=== PATIENT | male | born 1955 | race Caucasian/White ===

== ENCOUNTER → 2016-07-04 | Outpatient (CLI) | payer OTHER ==
[~2016-07-04] MED LIST: ASPI81 PO; ASPI81TA81 PO; FENO145T2 PO; FENO50TA PO; HYDR-3535 PO; LORA-475 PO; LORA1TAB12 PO; MECL-62 PO; MULT-135 PO; NIFE20 PO; NIFE60TA58 PO; PRED20 PO; PREV30CA11 PO; PREV30CA36 PO; SIMV5TAB32 PO; TOPR50TA PO; ZOCO10TA PO; ZOFR4TAB3 SL
[2016-07-04 10:03] LABS: ALKALINE PHOSPHATASE 76 U/L (45-117); ALT (GPT) 19 U/L (12-78); ANION GAP 7 MEQ/L (5-15); AST (GOT) 16 U/L (15-37); BICARBONATE 29.4 MEQ/L (21.0-32.0); BLOOD UREA NITROGEN 26 MG/DL (7-18); CHLORIDE 105 MEQ/L (98-107); GLOMERULAR FILTRATION RATE 80 ML/MIN (>89); GLUCOSE,FASTING 88 MG/DL (74-99); HDL CHOLESTEROL 52.8 MG/DL (40.0-60.0); LDL CHOLESTEROL 71 MG/DL (0-99); POTASSIUM 4.4 MEQ/L (3.5-5.1); SODIUM (NA) 141 MEQ/L (136-145); TOTAL BILIRUBIN ADULT 0.3 MG/DL (0.2-1.0)
== END ==
LOC: PLAB 06:42
PROVIDERS: ATTEND Family Medicine
DX: E78.2 Mixed hyperlipidemia (principal)
CPT/HCPCS: 80053; 80061

== ENCOUNTER 2016-09-30 13:31 | Emergency (ER) | payer OTHER ==
[~2016-09-30] VITALS: Ht 167.6 cm; Wt 68.0 kg
[~2016-09-30 13:31] MED LIST changes: -ASPI81TA81 PO; -FENO145T2 PO; -LORA1TAB12 PO; -MECL-62 PO; -MULT-135 PO; -NIFE60TA58 PO; -PREV30CA11 PO; -ZOCO10TA PO; -ZOFR4TAB3 SL
[2016-09-30 13:33] VITALS: BP 148/90; PULSE 58; RESP 20; TEMP 97.8; O2SAT 97
[2016-09-30] MEDS ORDERED: SODIUM CHLOR 0.9% 1000 ML INJ 1,000 ML IV ONE (14:08)
--- NOTE | 2016-09-30 14:13 | PD ---
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 He reports that for the past week he has been having episodic episodes in which he has a "room spinning" sensation. Symptoms tend to last approximately 20 minutes at a time and he seemed to be primarily reproduced with movement, especially when he is going from sitting to lying down although sometimes the symptoms are not reproduced by movement. He endorses some nausea associated as well as some blurred vision. Currently he is not expressing any symptoms however earlier today he had a particularly bad out of the symptoms which prompted evaluation. 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 He also endorses cold symptoms 3 weeks ago. Denies any fevers, chills, chest pain or shortness of breath, palpitations, vomiting, slurred speech, focal weakness. PFSH Past Medical History Hx Anticoagulant Therapy: No Asthma: No Autoimmune Disease: No Blood Disorders: No Anxiety: Yes Heart Rhythm Problems: No Cancer: No Cardiac Catheterization: Yes Cardiovascular Problems: Yes ([place] 10 years ago) High Cholesterol: Yes Chemotherapy: No Chest Pain: Yes Congestive Heart Failure: No COPD: No Cerebrovascular Accident: No Diabetes: No Diminished Hearing: No Endocrine: No GERD: Yes Genitourinary: No Headaches: No Hepatitis: Yes Hiatal Hernia: Yes Hypertension: Yes Immune Disorder: No Kidney Stones: No Musculoskeletal: No Neurologic: Yes (BELLS PALSY) Psychiatric: No Reproductive: No Respiratory: No Migraines: No Myocardial Infarction: Yes (2003) Radiation Therapy: No Renal Failure: No Seizures: No Sleep Apnea: No Ulcer: No Past Surgical History Abdominal Surgery: No AICD: No Appendectomy: No Arteriovenous Shunt: No Cardiac Surgery: Yes (stents) Cholecystectomy: No Coronary Stent: Yes (X2) Ear Surgery: No Endocrine Surgery: No Eye Surgery: No Genitourinary Surgery: No Gynecologic Surgery: No Insulin Pump: No Joint Replacement: No Oral Surgery: No Pacemaker: No Thoracic Surgery: No Other Surgery: Yes (right shoulder) Social History Alcohol Use: Yes (WINE OCCASIONALLY) Tobacco Use: No Substance Use: Yes ([employer]) Allergies-Medications (Allergen,Severity, Reaction): Coded Allergies: Codeine (Verified Allergy, Severe, Nausea/Vomiting, 09/30/16) Oxycodone (Verified Allergy, Severe, Rash, 09/30/16) Morphine (Verified Adverse Reaction, Mild, LOCALIZED REDDENED AREA, ) Reported Meds & Prescriptions Reported Meds & Active Scripts Active Meclizine (Meclizine HCl) 25 Mg Tab 25 Mg PO TID PRN Reported Aspir-81 (Aspirin) 81 Mg Tabdr 81 Mg PO DAILY Fenofibrate 145 Mg Tab 145 Mg PO DAILY Lortab (Hydrocodone-Acetaminophen) 10-325 Mg Tab 1 Tab PO Q4H PRN Prevacid (Lansoprazole) 30 Mg Capdr 30 Mg PO DAILY Lorazepam 1 Mg Tab 1 Mg PO BID PRN Toprol XL (Metoprolol Succinate) 50 Mg Tab 50 Mg PO DAILY Nifedipine ER 24 HR (Nifedipine) 60 Mg Tab 60 Mg PO DAILY Zocor (Simvastatin) 10 Mg Tab 10 Mg PO DAILY Multi Vitamin (Multiple Vitamin) 1 Tab Tab 1 Tab PO DAILY Review of Systems Except as stated in HPI: all other systems reviewed are Neg Physical Exam Narrative GENERAL: Well-developed well-nourished male in no acute distress sitting upright on hospital bed SKIN: Warm and dry. HEAD: Atraumatic. Normocephalic. EYES: Pupils equal and round reactive to light extraocular muscles are intact. ENT: No nasal bleeding or discharge. Mucous membranes pink and moist. NECK: Trachea midline. No JVD. CARDIOVASCULAR: Regular rate and rhythm. No murmur appreciated. RESPIRATORY: No accessory muscle use. Clear to auscultation. Breath sounds equal bilaterally. GASTROINTESTINAL: Abdomen soft, non-tender, nondistended. Hepatic and splenic margins not palpable. MUSCULOSKELETAL: No obvious deformities. No clubbing. No cyanosis. No edema. NEUROLOGICAL: Awake and alert. No obvious cranial nerve deficits. Motor grossly within normal limits. Normal speech. Normal [id number], heel-to- metcalf, rapid alternating movements. Some ataxia when walking heel to toe. Positive Freeport-Hallpike maneuver. No nystagmus but reproduces symptoms. PSYCHIATRIC: Appropriate mood and affect; insight and judgment normal. Data Data Last Documented VS Vital Signs Date Time Temp Pulse Resp B/P Pulse Ox O2 Delivery O2 Flow Rate FiO2 09/30/16 14:35 18 99 Room Air 09/30/16 13:33 97.8 58 148/90 Orders Electrocardiogram (09/30/16 ) Basic Metabolic Panel (Bmp) (09/30/16 14:08) Complete Blood Count With Diff (09/30/16 14:08) Magnesium (Mg) (09/30/16 14:08) Ecg Monitoring (09/30/16 14:08) Iv Access Insert/Monitor (09/30/16 14:08) Oximetry (09/30/16 14:08) Meclizine (Antivert) (09/30/16 14:15) Ondansetron Inj (Zofran Inj) (09/30/16 14:15) Sodium Chlor 0.9% 1000 Ml Inj (Ns 1000 M (09/30/16 14:08) Mri Brain W/O Contrast (09/30/16 ) Labs Laboratory Tests Test 09/30/16 14:25 White Blood Count 7.7 TH/MM3 Red Blood Count 4.35 MIL/MM3 Hemoglobin 13.5 GM/DL Hematocrit 39.7 % Mean Corpuscular Volume 91.4 FL Mean Corpuscular Hemoglobin 31.0 PG Mean Corpuscular Hemoglobin 33.9 % Concent Red Cell Distribution Width 13.9 % Platelet Count 273 TH/MM3 Mean Platelet Volume 7.8 FL Neutrophils (%) (Auto) 71.6 % Lymphocytes (%) (Auto) 13.7 % Monocytes (%) (Auto) 8.7 % Eosinophils (%) (Auto) 5.4 % Basophils (%) (Auto) 0.6 % Neutrophils # (Auto) 5.5 TH/MM3 Lymphocytes # (Auto) 1.1 TH/MM3 Monocytes # (Auto) 0.7 TH/MM3 Eosinophils # (Auto) 0.4 TH/MM3 Basophils # (Auto) 0.0 TH/MM3 CBC Comment DIFF FINAL Differential Comment Sodium Level 145 MEQ/L Potassium Level 4.2 MEQ/L Chloride Level 109 MEQ/L Carbon Dioxide Level 28.1 MEQ/L Anion Gap 8 MEQ/L Blood Urea Nitrogen 33 MG/DL Creatinine 1.23 MG/DL Estimat Glomerular Filtration 60 ML/MIN Rate Random Glucose 86 MG/DL Calcium Level 9.5 MG/DL Magnesium Level 2.3 MG/DL MDM Medical Decision Making Medical Screen Exam Complete: Yes Emergency Medical Condition: Yes Medical Record Reviewed: Yes Interpretation(s) EKG sinus bradycardia, rate 57 Differential Diagnosis BPPV, Mnire's labyrinthitis, CVA, mass, electrolyte abnormality, arrhythmia Narrative Course 60-year-old male with episodic vertigo sensation with associated nausea over the past week. It seems to be primarily reproduced with movement. He has some ataxia when walking heel to toe, otherwise no neurologic findings on examination. He has significant vertigo with Freeport-Hallpike maneuver. Certainly this is all suggestive of BPPV. Given his age, risk factors, MRI of the brain was ordered to rule out CVA. Basic lab work has been ordered as well as an EKG. He was placed on ECG monitoring. He was given IV fluids, meclizine and Zofran. 1540: Lab work is unremarkable, MRI is normal. Upon examination the patient feels significantly improved, he has had essential resolution of his symptoms with administration of meclizine and Zofran. Suspect BPPV, recommend outpatient follow-up with primary care physician Dr. Simons. He actually has an appointment next week. He is stable for discharge. Procedures EKG Prior to Arrival: Yes Diagnosis Primary Impression: BPPV (benign paroxysmal positional vertigo) Qualified Code: H81.10 - BPPV (benign paroxysmal positional vertigo), unspecified laterality Additional Instructions: Medication as needed. Sometimes meclizine can cause sedation so do not drive, drink alcohol when using this medication. Follow-up with primary care physician next week as scheduled. Return for any acutely new or worsening symptoms. Med/Other Pt SpecificInfo: Prescription(s) given Scripts Ondansetron Odt (Zofran Odt)4 Mg Tab4 Mg SL Q6HR PRN (Nausea/Vomiting) #30 TAB Ref 0 Prov:Mery Garcia MD 09/30/16 Meclizine 25 Mg Tab25 Mg PO TID PRN (VERTIGO) #30 TAB Ref 0 Prov:Mery Garcia MD 09/30/16 Disposition: 01 DISCHARGE HOME Condition: Stable Zach Tamez September 30, 2016 14:13
[2016-09-30] MEDS ORDERED: ONDANSETRON HCL 4 MG/2 ML VIAL IVP ONE (14:15)
[2016-09-30] MEDS ORDERED: MECLIZINE HCL 25 MG TAB PO ONE (14:15)
[2016-09-30 14:35] VITALS: RESP 18; O2SAT 99
[2016-09-30] MEDS ORDERED: LORA1TAB12 PO (14:42)
[2016-09-30] MEDS ORDERED: ZOCO10TA PO (14:42)
[2016-09-30] MEDS ORDERED: HYDR-3535 PO (14:42)
[2016-09-30] MEDS ORDERED: NIFE60TA58 PO (14:42)
[2016-09-30] MEDS ORDERED: TOPR50TA PO (14:42)
[2016-09-30] MEDS ORDERED: PREV30CA11 PO (14:42)
[2016-09-30] MEDS ORDERED: ASPI81TA81 PO (14:42)
[2016-09-30] MEDS ORDERED: FENO145T2 PO (14:42)
[2016-09-30] MEDS ORDERED: MULT-135 PO (14:42)
[2016-09-30 14:45] LABS: AUTOMATED NEUTROPHIL # 5.5 TH/MM3 (1.8-7.7); BASOPHIL % 0.6 % (0.0-2.0); EOSINOPHIL # 0.4 TH/MM3 (0-0.4); EOSINOPHIL % 5.4 % (0.0-4.0); HEMATOCRIT 39.7 % (39.0-51.0); HEMO FLAGS DIFF FINAL; LYMPH % 13.7 % (9.0-44.0); LYMPHOCYTE # 1.1 TH/MM3 (1.0-4.8); MEAN CELL VOLUME 91.4 FL (80.0-100.0); MEAN CORPUSCULAR HGB CONC 33.9 % (32.0-36.0); MONO % 8.7 % (0.0-8.0); NEUT % 71.6 % (16.0-70.0); PLATELET COUNT 273 TH/MM3 (150-450); RED BLOOD COUNT 4.35 MIL/MM3 (4.50-5.90); RED CELL DISTRIBUTION WIDTH 13.9 % (11.6-17.2); WHITE BLOOD COUNT 7.7 TH/MM3 (4.0-11.0)
[2016-09-30 15:00] LABS: BICARBONATE 28.1 MEQ/L (21.0-32.0); MAGNESIUM 2.3 MG/DL (1.5-2.5); POTASSIUM 4.2 MEQ/L (3.5-5.1)
--- NOTE | 2016-09-30 15:33 | RADRPT ---
EXAM DATE/TIME: 09/30/2016 14:47 [facility] COMPARISON: No previous studies available for comparison. INDICATIONS : Dizziness. Nausea. Left shoulder pain. MEDICAL HISTORY : Hypertension. Hypercholesterolemia. SURGICAL HISTORY : Rotator cuff, left. Rotator cuff, right. Cardiac cath with stent. ENCOUNTER: Initial ACUITY: 1 day PAIN SCORE: 0/10 LOCATION: cranial TECHNIQUE: Multiplanar, multisequence MRI of the brain was performed without contrast. FINDINGS: CEREBRUM: The ventricles are normal for age. No evidence of midline shift, mass lesion, hemorrhage or acute in farction. No extraaxial fluid collections are seen. The pituitary gland and suprasellar cistern are normal in configuration. WHITE MATTER: No significant signal abnormalities are seen in the white matter. POSTERIOR FOSSA: The cerebellum and brainstem are intact. The 4th ventricle is midline. The cerebellopontine angle is unremarkable. The cerebellar tonsils are normal in position. DIFFUSION IMAGING: No focal areas of restricted diffusion are seen. No evidence of acute infarction. EXTRACRANIAL: The visualized portions of the orbits and paranasal sinuses are unremarkable. CONCLUSION: No acute intracranial findings. Oc Jones MD on September 30, 2016 at 15:30 Board Certified Radiologist. This report was verified electronically.
[2016-09-30] MEDS ORDERED: MECL-62 PO (15:38)
--- NOTE | 2016-09-30 15:40 | PD ---
Data Data Last Documented VS Vital Signs Date Time Temp Pulse Resp B/P Pulse Ox O2 Delivery O2 Flow Rate FiO2 09/30/16 14:35 18 99 Room Air 09/30/16 13:33 97.8 58 148/90 Orders Electrocardiogram (09/30/16 ) Basic Metabolic Panel (Bmp) (09/30/16 14:08) Complete Blood Count With Diff (09/30/16 14:08) Magnesium (Mg) (09/30/16 14:08) Ecg Monitoring (09/30/16 14:08) Iv Access Insert/Monitor (09/30/16 14:08) Oximetry (09/30/16 14:08) Meclizine (Antivert) (09/30/16 14:15) Ondansetron Inj (Zofran Inj) (09/30/16 14:15) Sodium Chlor 0.9% 1000 Ml Inj (Ns 1000 M (09/30/16 14:08) Mri Brain W/O Contrast (09/30/16 ) Labs Laboratory Tests Test 09/30/16 14:25 White Blood Count 7.7 TH/MM3 Red Blood Count 4.35 MIL/MM3 Hemoglobin 13.5 GM/DL Hematocrit 39.7 % Mean Corpuscular Volume 91.4 FL Mean Corpuscular Hemoglobin 31.0 PG Mean Corpuscular Hemoglobin 33.9 % Concent Red Cell Distribution Width 13.9 % Platelet Count 273 TH/MM3 Mean Platelet Volume 7.8 FL Neutrophils (%) (Auto) 71.6 % Lymphocytes (%) (Auto) 13.7 % Monocytes (%) (Auto) 8.7 % Eosinophils (%) (Auto) 5.4 % Basophils (%) (Auto) 0.6 % Neutrophils # (Auto) 5.5 TH/MM3 Lymphocytes # (Auto) 1.1 TH/MM3 Monocytes # (Auto) 0.7 TH/MM3 Eosinophils # (Auto) 0.4 TH/MM3 Basophils # (Auto) 0.0 TH/MM3 CBC Comment DIFF FINAL Differential Comment Sodium Level 145 MEQ/L Potassium Level 4.2 MEQ/L Chloride Level 109 MEQ/L Carbon Dioxide Level 28.1 MEQ/L Anion Gap 8 MEQ/L Blood Urea Nitrogen 33 MG/DL Creatinine 1.23 MG/DL Estimat Glomerular Filtration 60 ML/MIN Rate Random Glucose 86 MG/DL Calcium Level 9.5 MG/DL Magnesium Level 2.3 MG/DL [facility] Supervised Visit with NOHEMI: Yes Narrative Course I, Dr. Garcia, have reviewed the advance practice practioner's documentation and am in agreement, met with the patient face to face, made the diagnosis, and the medical decision making was done by me. *My assessment and Findings: 60 y/o M with HTN, HLD, CAD here with vertigo intermittently over the last week, worse with movement, worse today prompting ED visit. No tinnitus, ear pain, change in hearing. Worse with head movement. Neuro exam unremakble here other than positive Isom Halpike. DDx central vs periphearl vertigo, likely BPPV. EKG, labs, MRI brain nml. Improved with meclizine. D/c to home. Diagnosis Primary Impression: BPPV (benign paroxysmal positional vertigo) Qualified Code: H81.10 - BPPV (benign paroxysmal positional vertigo), unspecified laterality Med/Other Pt SpecificInfo: Prescription(s) given Scripts Meclizine 25 Mg Tab25 Mg PO TID PRN (VERTIGO) #30 TAB Ref 0 Prov:Mery Garcia MD 09/30/16 Mery Garcia MD September 30, 2016 15:40
[2016-09-30] MEDS ORDERED: ZOFR4TAB3 SL (15:41)
--- NOTE | 2016-10-01 16:56 | EKG ---
Date Performed: 09/30/2016 Time Performed: 14:11:52 PTAGE: 60 years EKG: SINUS BRADYCARDIA Compared to previous tracing, the patient is now bradycardic BORDERLINE E CG PREVIOUS TRACING : 06/25/2009 18.46 DOCTOR: Kaykay Ferrara Interpretating Date/Time 10/01/2016 16:55:21
== END 2016-09-30 16:04 | disposition home or self-care (01) ==
LOC: NEPC 13:31
DX: H81.10 Benign paroxysmal vertigo, unspecified ear (principal); I10 Essential (primary) hypertension; I25.2 Old myocardial infarction; M25.512 Pain in left shoulder; R11.0 Nausea
CPT/HCPCS: 70551; 80048; 83735; 85025; 93005; 96361; 96374; 99284; J2405; J7030

== ENCOUNTER → 2017-07-09 | Outpatient (CLI) | payer OTHER ==
[~2017-07-09] MED LIST changes: -ASPI81 PO; +ASPI81TA81 PO; +FENO145T2 PO; -FENO50TA PO; -LORA-475 PO; +LORA1TAB12 PO; +MECL-62 PO; +MULT-135 PO; -NIFE20 PO; +NIFE60TA58 PO; -PRED20 PO; -SIMV5TAB32 PO; +ZOCO10TA PO; +ZOFR4TAB3 SL
[2017-07-09 09:37] LABS: AUTOMATED NEUTROPHIL # 2.3 TH/MM3 (1.8-7.7); BASOPHIL # 0.1 TH/MM3 (0-0.2); BASOPHIL % 1.3 % (0.0-2.0); EOSINOPHIL # 0.5 TH/MM3 (0-0.4); EOSINOPHIL % 9.8 % (0.0-4.0); HEMATOCRIT 41.5 % (39.0-51.0); HEMOGLOBIN 14.4 GM/DL (13.0-17.0); LYMPH % 28.1 % (9.0-44.0); LYMPHOCYTE # 1.3 TH/MM3 (1.0-4.8); MEAN CELL VOLUME 92.2 FL (80.0-100.0); MEAN CORPUSCULAR HEMOGLOBIN 31.9 PG (27.0-34.0); MEAN CORPUSCULAR HGB CONC 34.6 % (32.0-36.0); MEAN PLATELET VOLUME 7.6 FL (7.0-11.0); MONO % 11.5 % (0.0-8.0); MONOCYTE # 0.5 TH/MM3 (0-0.9); NEUT % 49.3 % (16.0-70.0); PLATELET COUNT 327 TH/MM3 (150-450); RED CELL DISTRIBUTION WIDTH 13.9 % (11.6-17.2); WHITE BLOOD COUNT 4.7 TH/MM3 (4.0-11.0)
[2017-07-09 09:56] LABS: ALBUMIN 3.9 GM/DL (3.4-5.0); AST (GOT) 17 U/L (15-37); BICARBONATE 29.7 MEQ/L (21.0-32.0); BLOOD UREA NITROGEN 23 MG/DL (7-18); CALCIUM 9.3 MG/DL (8.5-10.1); CHLORIDE 109 MEQ/L (98-107); CREATININE 0.91 MG/DL (0.60-1.30); GLOMERULAR FILTRATION RATE 84 ML/MIN (>89); GLUCOSE,FASTING 90 MG/DL (74-99); SODIUM (NA) 143 MEQ/L (136-145)
[2017-07-09 09:57] LABS: ALT (GPT) 14 U/L (12-78); CHOLESTEROL 124 MG/DL (120-200)
[2017-07-09 10:08] LABS: ALKALINE PHOSPHATASE 65 U/L (45-117); CHOLESTEROL/ HDL RATIO 2.68 RATIO; HDL CHOLESTEROL 46.1 MG/DL (40.0-60.0); LDL CHOLESTEROL 65 MG/DL (0-99); TOTAL BILIRUBIN ADULT 0.5 MG/DL (0.2-1.0); TRIGLYCERIDES 67 MG/DL (42-150)
== END ==
LOC: PLAB 06:41
PROVIDERS: ATTEND Family Medicine
DX: N40.0 Benign prostatic hyperplasia without lower urinary tract symptoms (principal)
CPT/HCPCS: 36415; 80053; 80061; 84153; 84443; 85025